=== PATIENT | female | born 1995 | race Caucasian/White ===

== ENCOUNTER → 2018-04-02 | Outpatient (CLI) | payer BC ==
[2018-04-02 18:20] LABS: CHLAMYDIA DNA AMPLIFICATION NEGATIVE (NEGATIVE); GC DNA AMPLIFICATION NEGATIVE (NEGATIVE)
== END ==
LOC: M LRY 11:48
DX: R11.0 Nausea (principal); R10.13 Epigastric pain; M62.838 Other muscle spasm
CPT/HCPCS: 87086